=== PATIENT | female | born 1955 | race Caucasian/White ===

== ENCOUNTER 2020-08-30 12:11 | Emergency (ER) | payer BC, SELFPAY ==
[2020-08-30 12:29] VITALS: BP 137/81; PULSE 94; RESP 18; TEMP 36.7; O2SAT 100
--- NOTE | 2020-08-30 12:57 | ED.BACK ---
HPI - Back Pain/Injury General Chief Complaint: Back Pain/Injury Stated Complaint: hip pain Time Seen by Provider: 08/30/20 12:35 Source: patient and RN notes reviewed Mode of arrival: ambulatory Limitations: no limitations History of Present Illness HPI Narrative: Patient presents today with a 1 week history of left hip and low back pain. Denies injury prior to onset of symptoms. Denies radiation of the pain. Denies numbness or tingling in the legs or feet. Denies any loss of bowel or bladder control. She currently rates her pain 8/10 and describes the pain as stabbing. She has been taking Tylenol and ibuprofen without relief. 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 MD elicited complaint: back pain Related Data Home Medications Medication Instructions Recorded Confirmed folic acid 1 mg PO DAILY 08/30/20 08/30/20 methotrexate sodium [Methotrexate 10 mg PO WEEKLY 08/30/20 08/30/20 (Anti-Rheumatic)] multivitamin [A To Z Multivitamin] 1 tablet PO DAILY 08/30/20 08/30/20 phenytoin sodium extended 200 mg PO BID 08/30/20 08/30/20 [Dilantin Extended] Allergies Allergy/AdvReac Type Severity Reaction Status Date / Time No Known Allergies Allergy Verified 08/30/20 12:35 Review of Systems Review of Systems: Narrative: CONSTITUTIONAL: Denies body aches, fever, chills, or sweats. EYES: Denies visual changes, redness, or discharge. ENT: Denies rhinorrhea, congestion, sore throat, or otalgia. CARDIOVASCULAR: Denies chest pain, palpitations, or edema. RESPIRATORY: Denies cough or dyspnea. GASTROINTESTINAL: Denies abdominal pain, nausea, vomiting, or diarrhea. GENITOURINARY: Denies dysuria or hematuria. SKIN: Denies rash, itching, or wounds. MUSCULOSKELETAL: Denies or myalgia.+ Left hip and low back pain NEUROLOGIC: Denies headache, numbness, tingling, or weakness. PSYCH: Denies depression or anxiety. [facility] Past Medical History Medical History (Updated 08/30/20 @ 15:02 by Zoey Galvan, RN ANESTHETIST, ) Connective tissue disorder Depression Surgical History Surgical History (Updated 08/30/20 @ 15:02 by Zoey Galvan, [facility], ) History of bilateral tubal ligation Comments At time of signature, I have reviewed and agree with nursing past medical, surgical, social and family history unless otherwise noted. Please see nursing chart for further information. There is no relevant family history pertinent to the presenting complaint Exam Narrative: Exam Narrative: GENERAL: Well-appearing, well-nourished, and in no acute distress. HEAD: Normocephalic, atraumatic. EYES: EOMI. No redness or drainage. Conjunctivae normal. ENT: Mucous membranes pink and moist. NECK: Normal AROM. CHEST: No respiratory distress. MUSCULOSKELETAL: No bony tenderness of the spine. Patient has a palpable muscle spasm to the left lower lumbar paraspinal muscles. It is tender to palpation. No other muscle tenderness or spinal tenderness noted. Distal sensation intact. Capillary refill normal. Posterior tibial pulses normal. Saddle sensation intact. Patellar reflexes normal 2+ bilaterally. EXTREMITIES: Normal range of motion. No edema. SKIN: Warm, dry, no rash. Capillary refill normal. Normal skin turgor. NEURO: No focal deficits. Alert and oriented x3. Gait steady. PSYCH: Normal affect. No signs of depression or anxiety. Course Course Emergency Course: Patient declines prescription for muscle relaxer. Vital Signs Vital signs: Vital Signs Temperature 98.1 F 08/30/20 12:29 Pulse Rate 94 08/30/20 12:29 Respiratory Rate 18 08/30/20 12:29 Blood Pressure 137/81 08/30/20 12:29 Pulse Oximetry 100 08/30/20 12:29 Temperature 98.1 F 08/30/20 12:29 Pulse Rate 94 08/30/20 12:29 Respiratory Rate 18 08/30/20 12:29 Blood Pressure 137/81 08/30/20 12:29 Pulse Oximetry 100
== END 2020-08-30 13:02 | disposition home or self-care (01) ==
PROVIDERS: Emergency Provider Nurse Practitioner; PCP Family Medicine
DX: M62.838 Other muscle spasm (principal); S39.012A Strain of muscle, fascia and tendon of lower back, initial encounter; X58.XXXA Exposure to other specified factors, initial encounter; G40.909 Epilepsy, unspecified, not intractable, without status epilepticus; M35.9 Systemic involvement of connective tissue, unspecified
CPT/HCPCS: 99213; G0463

== ENCOUNTER 2021-04-06 14:09 | Emergency (ER) | payer BC, SELFPAY ==
--- NOTE | 2021-04-06 14:14 | ED.URI ---
HPI - URI/Sore Throat General Chief Complaint: Upper Respiratory Infection Stated Complaint: Sinus Congestion Time Seen by Provider: 04/06/21 14:14 Source: patient and RN notes reviewed History of Present Illness HPI Narrative: Patient is a 65-year-old female who presents to the urgent care with complaints of sinus congestion for the last 2 days. Patient states that it started on Monday and she initially had a sore throat which kept her home from work . Patient states that she did have a COVID test which was negative however her workplace wanted her to be seen. Patient has not used anything [id number] because she states that she lives with sinus congestion . Patient denies of any recent fevers, nausea, vomiting. Patient has had the COVID-vaccine. No other acute complaints. No acute distress noted. Patient aware of the plan of care. Some parts of this dictation were generated by voice recognition software and may contain typographical and/or grammatical inaccuracies. Related Data Home Medications Medication Instructions Recorded Confirmed folic acid 1 mg PO DAILY 08/30/20 08/30/20 methotrexate sodium [Methotrexate 10 mg PO WEEKLY 08/30/20 08/30/20 (Anti-Rheumatic)] multivitamin [A To Z Multivitamin] 1 tablet PO DAILY 08/30/20 08/30/20 phenytoin sodium extended 200 mg PO BID 08/30/20 08/30/20 [Dilantin Extended] Allergies Allergy/AdvReac Type Severity Reaction Status Date / Time No Known Allergies Allergy Verified 08/30/20 12:35 Review of Systems Review of Systems: CONSTITUTIONAL: Denies fever, chills, or sweats. EYES: Denies visual changes, redness, or discharge. ENT: Reports of sinus congestion and postnasal drainage CARDIOVASCULAR: Denies chest pain, palpitations, or edema. RESPIRATORY: Denies cough or dyspnea. GASTROINTESTINAL: Denies abdominal pain, nausea, vomiting, or diarrhea. GENITOURINARY: Denies dysuria or hematuria. SKIN: Denies rash or itching. MUSCULOSKELETAL: Denies back pain, joint pain, or myalgia. NEUROLOGIC: Denies headache, numbness, or weakness. All other systems reviewed are negative, except as documented in HPI. [facility] Past Medical History Medical History (Updated 04/06/21 @ 14:45 by SHIRIN Johansen) Connective tissue disorder Depression Surgical History Surgical History (Updated 08/30/20 @ 15:02 by Zoey Galvan, [facility], ) History of bilateral tubal ligation Comments At the time of my signature, I reviewed and agree with the nursing past medical, surgical, social, and family history. There is no relevant family history pertinent to the patient complaint. Exam Narrative: GENERAL: This is a well-nourished, well-developed patient, in no apparent distress. HEAD: normocephalic, atraumatic. EYES: PERRL. Sclera clear/white. Vision is grossly intact. EARS: External ears normal, auditory canals clear and without drainage, TMs normal without perforation. Hearing grossly intact. NOSE: External nose normal with no obvious nasal discharge, nares without redness, no rhinorrhea. THROAT: Mucous membranes moist. Moderate postnasal drainage with mild erythema noted to posterior oropharynx without exudate or ulceration NECK: Neck supple CARDIOVASCULAR: Regular rate and rhythm without murmurs, gallops, or rubs. RESPIRATORY: Clear to auscultation. Breath sounds equal bilaterally. No wheezes, rales, or rhonchi. SKIN: warm, intact with no suspicious lesions or rash, good texture and turgor. NEURO: awake, alert, and oriented to person, place and time. There were no obvious focal neurologic abnormalities. EXTREMITIES: No clubbing, cyanosis, or edema. Course Course Level of Care: Express Care Visit Vital Signs Vital signs: Vital Signs Temperature 100.0 F H 04/06/21 14:25 Pulse Rate 91 04/06/21 14:25 Respiratory Rate 18 04/06/21 14:25 Blood Pressure 151/72 H 04/06/21 14:25 Pulse Oximetry 100 04/06/21 14:25 Temperature 100.0 F H 04/06/21 14:25 Pulse
[2021-04-06 14:25] VITALS: BP 151/72; PULSE 91; RESP 18; TEMP 37.8; O2SAT 100
== END 2021-04-06 14:50 | disposition home or self-care (01) ==
PROVIDERS: Emergency Provider Nurse Practitioner Family; PCP Family Medicine
DX: J32.9 Chronic sinusitis, unspecified (principal); L94.9 Localized connective tissue disorder, unspecified
CPT/HCPCS: 99211; G0463

== ENCOUNTER 2021-07-23 11:18 | Emergency (ER) | payer BC, SELFPAY ==
--- NOTE | ~2021-07-23 | XR_ITS ---
EXAMINATION: [id number] DATE: 07/23/2021 11:44 INDICATION: Left posterior chest pain. TECHNIQUE: A frontal view of the chest and 2 views on 3 radiographs of the left ribs were obtained. COMPARISON: None. FINDINGS: There is mild scarring at the lung apices. No pleural effusion or pneumothorax. The heart s ize is normal. IMPRESSION: 1. No rib fracture. Reviewed, dictated and finalized at location A. IMPRESSION: 1. No rib fracture.
[2021-07-23 11:26] VITALS: BP 139/69; PULSE 73; RESP 16; TEMP 37.3; O2SAT 97
--- NOTE | 2021-07-23 11:53 | PC.NURSE ---
PT DECLINED ICE FOR COMFORT
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
== END 2021-07-23 12:50 | disposition home or self-care (01) ==
PROVIDERS: Emergency Provider Registered Nurse; PCP Family Medicine
DX: S20.212A Contusion of left front wall of thorax, initial encounter (principal); F17.210 Nicotine dependence, cigarettes, uncomplicated; W18.39XA Other fall on same level, initial encounter
CPT/HCPCS: 71101; 99213; G0463

== ENCOUNTER 2022-11-20 14:39 | Emergency (ER) | payer OTHER, SELFPAY ==
--- NOTE | ~2022-11-20 | XR_ITS ---
EXAMINATION: XR foot RT min 3V DATE: 11/20/2022 15:03 INDICATION: Posttraumatic pain at the right fifth toe TECHNIQUE: Dorsoplantar, two oblique and lateral views of the right foot were obtained. COMPARISON: None. FINDINGS: Alignment is normal. No fracture. Joint spaces are normal. Small Achilles and plantar calcaneal spurs . Soft tissues are unremarkable. IMPRESSION: 1. No acute osseous abnormality. Reviewed, dictated and finalized at location A.
[2022-11-20 14:48] VITALS: BP 149/77; PULSE 80; RESP 14; TEMP 36.6; O2SAT 97
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
== END 2022-11-20 16:00 | disposition home or self-care (01) ==
PROVIDERS: Emergency Provider Nurse Practitioner; PCP Family Medicine
DX: S90.121A Contusion of right lesser toe(s) without damage to nail, initial encounter (principal); X58.XXXA Exposure to other specified factors, initial encounter; G40.909 Epilepsy, unspecified, not intractable, without status epilepticus; L94.9 Localized connective tissue disorder, unspecified
CPT/HCPCS: 73630; 99213; G0463